=== PATIENT | male | born 1955 | race Two or more races ===

== ENCOUNTER 2018-09-20 18:46 | Emergency (ER) | payer SELFPAY ==
[~2018-09-20] VITALS: Ht 175.3 cm; Wt 72.6 kg
[2018-09-20] MEDS ORDERED: NKM (18:54)
--- NOTE | 2018-09-20 18:55 | NUR ---
ED Nurse Note: Patient walked into ED c/o left thumb injury, patient reports that he was changing tire and got crush injury on the left thumb. patient reports this happened around 1530 today
--- NOTE | 2018-09-20 19:07 | NUR ---
HAND-OFF: Report given to Adelina PARTIDA.
--- NOTE | 2018-09-20 19:08 | NUR ---
ED Nurse Note: Received report from Heidi/RN, will continue to monitor.
[2018-09-20] MEDS ORDERED: Tetanus/Diptheria/Pertussis IM ONE (19:15)
--- NOTE | 2018-09-20 19:21 | Emergency Room Report ---
History of Present Illness General Chief Complaint: Upper Extremity Injury Source: Patient Present Illness HPI 63-year-old male presents to the emergency department complaining of 8 out of 10 severity pain, laceration and nail injury to the left thumb x1 day. Patient reports he was changing a car tire earlier and the vehicle slipped off of the pippa and his left thumb. Patient reports he is right-hand dominant he states he is not up-to-date with his tetanus vaccination he denies taking blood thinning medications. Allergies: Coded Allergies: No Known Allergies (Unverified , 09/20/18) Patient History Past Medical History: see triage record Past Surgical History: none Pertinent Family History: none Reviewed Nursing Documentation: PMH: Agreed; PSxH: Agreed Nursing Documentation-PMH Past Medical History: No Stated History Review of Systems All Other Systems: negative except mentioned in HPI Physical Exam Vital Signs Date Time Temp Pulse Resp B/P (MAP) Pulse Ox O2 Delivery O2 Flow Rate FiO2 09/20/18 18:50 98.1 75 17 155/68 (97) 95 Room Air Sp02 EP Interpretation: reviewed, normal General Appearance: alert, GCS 15, non-toxic, mild distress Head: normocephalic, atraumatic Eyes: bilateral eye normal inspection, bilateral eye PERRL ENT: hearing grossly normal, normal voice Neck: full range of motion Respiratory: lungs clear, normal breath sounds, speaking full sentences Cardiovascular #1: regular rate, rhythm Musculoskeletal: back normal, gait/station normal, normal range of motion, tender - distal left thumb, laceration just proximal to the nail , nail is not intact. Neurologic: alert, oriented x3, responsive, motor strength/tone normal, sensory intact, speech normal, grossly normal Psychiatric: judgement/insight normal Skin: normal color, no rash, warm/dry, well hydrated, other - Nail avulsion of the left thumb with 1cm nailbed laceration. Procedures Laceration/Wound Repair Laceration/Wound Repair : Consent: Verbal Wound Location: upper extremity Wound's Depth, Shape: nail-avulsed Wound Length (cm): 1 Wound Explored: contaminated - grossly contaminated Irrigated w/ Saline (ccs): 200 Betadine Prep?: Yes Anesthesia: 1% Lidocaine Volume Anesthetic (ccs): 5 Wound Repaired With: sutures Suture Size/Type: 4:0 Number of Sutures: 6 Layer Closure?: Yes Deep Layer Suture Size/Type: 4:0, chromic Number Deep Layer Sutures: 2 Sterile Dressing Applied?: Yes Splint Applied?: Yes Type of Splint Applied: short arm w. thumb extension Sling Applied?: Yes Patient Tolerated: Well Complications: None Medical Decision Making RAMOS Attestation Dr. Nieves is my supervising physician whom pt. management has been discussed with. Diagnostic Impression: Primary Impression: Fracture, metacarpal Qualified Codes: S62.209A - Unspecified fracture of first metacarpal bone, unspecified hand, initial encounter for closed fracture Additional Impressions: Laceration of finger nail bed Qualified Codes: S61.319A - Laceration without foreign body of unspecified finger with damage to nail, initial encounter Traumatic avulsion of nail plate of finger Qualified Codes: S61.309A - Unspecified open wound of unspecified finger with damage to nail, initial encounter ER Course 63-year-old male presents to the emergency department complaining of 8 out of 10 severity pain, laceration and nail injury to the left thumb x1 day. Patient reports he was changing a car tire earlier and the vehicle slipped off of the pippa and his left thumb. Patient reports he is right-hand dominant he states he is not up-to-date with his tetanus vaccination he denies taking blood thinning medications. Ddx considered but are not limited to Fracture, dislocation, contusion, Sprain/ Strain/Spasm, Vital signs: are WNL, pt. is afebrile H&PE are most consistent with musculoskeletal injury will perform imaging to r/ o fractures/dislocations. ORDERS: - X-ray Left Hand 3 views - POSITIVE FOR 5th METACARPAL Fx., No Dislocation, or significant soft tissue injury, per preliminary read in ED, and signed by RAMOS Lombardo, my supervising physician has reviewed, and agrees with my interpretation. ED INTERVENTIONS: - [place] PO -Nail bed lac repair -Morphine 4mg IM short arm Splint applied to the heft hand by tar processing technician. Pt. remains neurovascularly intact. - left arm Sling applied by tar processing technician. Pt. remains neurovascularly intact. DISCHARGE: At this time pt. is stable for d/c to home. Will provide printed patient care instructions, and any necessary prescriptions. Care plan and follow up instructions have been discussed with the patient prior to discharge. Other X-Ray Diagnostic Results Other X-Ray Diagnostic Results : X-Ray ordered: Left hand # of Views/Limited Vs Complete: 3 View Indication: Pain EP Interpretation: Yes PA Xray: Interpretation reviewed, by supervising MD, and agrees with findings. Interpretation: no dislocation, no soft tissue swelling, other - fx of the 5th metacarpal Impression: Other - abn Electronically Signed by: Nely Lombardo PA-C Last Vital Signs Date Time Temp Pulse Resp B/P (MAP) Pulse Ox O2 Delivery O2 Flow Rate FiO2 09/20/18 18:50 98.1 75 17 155/68 (97) 95 Room Air Status: improved Disposition: HOME, SELF-CARE Condition: Stable Scripts Hydrocodone Bit/Acetaminophen 5-325* (NORCO 5-325*) 1 Each Tablet 1 TAB ORAL Q6H PRN for For Pain, #10 TAB 0 Refills Prov: Nely Lombardo 09/20/18 Cephalexin* (KEFLEX*) 500 Mg Capsule 500 MG ORAL EVERY 12 HOURS for 7 Days, #14 CAP 0 Refills Prov: Nely Lombardo 09/20/18 Referrals: Jah Singletary MD [facility] Patient Instructions: Metacarpal Fracture, [id number], Nail Avulsion, Nail Bed Laceration Additional Instructions: Take medications as directed. Sutures to be removed in 10 days Follow up with an ORTHOPEDIC HAND SPECIALIST in 3-5 days, even if your symptoms have resolved. --Please review list of primary care clinics, if you do not already have a primary care provider who can give you an Orthopedic Referral. Return sooner to ED if new symptoms occur, or current symptoms become worse. Do not drink alcohol, drive, or operate heavy machinery while taking [place] as this may cause drowsiness. - Please note that this Emergency Department Report was dictated using [employer] development manager technology software, occasionally this can lead to erroneous entry secondary to interpretation by the dictation equipment. Nely Lombardo Sep 20, 2018 19:21
--- NOTE | 2018-09-20 19:22 | NUR ---
ED Nurse Note: Meds given as ordered.
[2018-09-20 19:25] VITALS: BP 151/67
[2018-09-20] MEDS ORDERED: HYDROcodone/Acetamin 5/325 tab ORAL ONE (19:30)
--- NOTE | 2018-09-20 20:04 | Diagnostic Imaging Report ---
EXAM: XR Left Hand Complete, 3 Views CLINICAL HISTORY: PAIN TECHNIQUE: Frontal, lateral and oblique views of the left hand. COMPARISON: No relevant prior studies available. FINDINGS: Bones/joints: Linear lucencies are seen in the fifth metacarpal bone which are likely related to a fracture. Some callus formation is suspected in this region which may be related to an acute on chronic fracture or a more subacute fracture that has undergone some healing. No dislocation. Soft tissues: Unremarkable. No radiopaque foreign body. IMPRESSION: Linear lucencies are seen in the fifth metacarpal bone which are likely related to a fracture. Some callus formation is suspected in this region which may be related to an acute on chronic fracture or a more subacute fracture that has undergone some healing.
[2018-09-20] MEDS ORDERED: NORCO 5-325 TA1 EACH ORAL (21:25)
[2018-09-20] MEDS ORDERED: CEPHALEXIN500 MG ORAL (21:25)
[2018-09-20 21:44] VITALS: BP 151/67
--- NOTE | 2018-09-20 21:44 | NUR ---
ER DISCHARGE NOTE: Patient is cleared to be discharged per Nely Lombardo/ RAMOS. X-ray done, cast applied to left arm and spline applied as well. Pt is aox4 on room air with stable vital signs. Pt was given dc and prescription instructions and was able to verbalize understanding. Pt's band removed. Pt is able to ambulate with steady gait and took all belongings.
[2018-09-20] MEDS ORDERED: Morphine Sulfate 2mg/ml Inj(IV/IM USE ONLY) IM ONE (21:45)
== END 2018-09-20 21:44 | disposition home or self-care (01) ==
LOC: EMR 19:20
DX: S61.112A Laceration without foreign body of left thumb with damage to nail, initial encounter (principal); S62.202A Unspecified fracture of first metacarpal bone, left hand, initial encounter for closed fracture; W22.8XXA Striking against or struck by other objects, initial encounter; Y93.89 Activity, other specified; Y92.9 Unspecified place or not applicable
CPT/HCPCS: 12001; 29105; 73130; 90471; 90715; 96372; 99284; J2270

== ENCOUNTER 2018-09-30 09:17 | Emergency (ER) | payer SELFPAY ==
[~2018-09-30] VITALS: Ht 167.6 cm; Wt 63.5 kg
[~2018-09-30 09:17] MED LIST: CEPHALEXIN500 MG ORAL; NKM; NORCO 5-325 TA1 EACH ORAL
[2018-09-30] MEDS ORDERED: IBUPROFEN600 MG ORAL (09:56)
[2018-09-30] MEDS ORDERED: Bacitracin Oint UD TOPIC ONE (10:00)
[2018-09-30 10:04] VITALS: BP 153/67
[2018-09-30 10:08] VITALS: BP 153/67
--- NOTE | 2018-09-30 10:37 | Emergency Room Report ---
History of Present Illness General Chief Complaint: Upper Extremity Injury Source: Patient Present Illness HPI 63-year-old male presents ED for evaluation. Patient is here for wound check. Had a fracture of his left hand on 09/20. Had sutures placed in his left thumb and placed in a splint. Was given referral to hand but patient states he never followed up. States he does have some pain but his pain medication ran out. Dull, 5 out of 10, nonradiating. No other aggravating relieving factors. Denies any other associated symptoms Allergies: Coded Allergies: No Known Allergies (Unverified , 09/20/18) Patient History Past Medical History: none Past Surgical History: none Pertinent Family History: none Social History: Denies: smoking, alcohol use, drug use Immunizations: UTD Reviewed Nursing Documentation: PMH: Agreed; PSxH: Agreed Nursing Documentation-PMH Past Medical History: No Stated History Review of Systems All Other Systems: negative except mentioned in HPI Physical Exam Vital Signs Date Time Temp Pulse Resp B/P (MAP) Pulse Ox O2 Delivery O2 Flow Rate FiO2 09/30/18 09:19 98.2 85 16 153/67 (95) 96 Room Air Sp02 EP Interpretation: reviewed, normal General Appearance: no apparent distress, alert, GCS 15, non-toxic Head: normocephalic Eyes: bilateral eye normal inspection, bilateral eye PERRL ENT: normal ENT inspection Neck: normal inspection Respiratory: normal inspection Cardiovascular #1: normal inspection Gastrointestinal: normal inspection Rectal: deferred Genitourinary: no CVA tenderness Musculoskeletal: tender - L hand. sutures in place L thumb nailbed Neurologic: alert, oriented x3, responsive, motor strength/tone normal, sensory intact, speech normal Psychiatric: judgement/insight normal, memory normal, mood/affect normal, no suicidal/homicidal ideation Skin: palpation normal, Decubitus/Ulcer, normal color Lymphatic: normal inspection Procedures Splinting Splinting : Consent: Verbal Pre-Made Type: velcro Splint: thumb spica Pre-Proc Neuro Vasc Exam: normal Post-Proc Neuro Vasc Exam: normal Patient Tolerated: Well Complications: None Medical Decision Making Diagnostic Impression: Primary Impression: Nailbed laceration, finger Qualified Codes: S61.319D - Laceration without foreign body of unspecified finger with damage to nail, subsequent encounter Additional Impressions: Metacarpal bone fracture Qualified Codes: S62.307D - Unspecified fracture of fifth metacarpal bone, left hand, subsequent encounter for fracture with routine healing Visit for wound check ER Course Hospital Course 63-year-old M presents to ED for wound check. s/p metacarpal fx and L thumb nailbed laceration Clinical course Patient placed on stretcher. Wound appears clean dry and intact. sutures in place. Erythema or induration. No fluctuance or discharge. Removed. Placed in thumb spica splint. Discussed findings with patient. He will need referral to Ortho/hand. Referrals were provided to him initially but he lost the paperwork. I will provide him with referrals again. Will prescribe ibuprofen. Diagnosis - visit for wound check, metacarpal fx, nailbed laceration finger Stable and discharged to home. Followup with hand/ortho Return to ED if any signs of infection develop Last Vital Signs Date Time Temp Pulse Resp B/P (MAP) Pulse Ox O2 Delivery O2 Flow Rate FiO2 09/30/18 10:08 98.2 69 16 153/67 96 Room Air Status: improved Disposition: HOME, SELF-CARE Condition: Stable Scripts Ibuprofen* (MOTRIN*) 600 Mg Tablet 600 MG ORAL Q8H PRN for For Pain, #30 TAB 0 Refills Prov: Santo Parish MD 09/30/18 Referrals: NOT CHOSEN IPA/,REFERRING (PCP) Jah Singletary MD [facility] Open 24 hour /7 days a week by Appointment Only [address] [facility] [address] Patient Instructions: Metacarpal Fracture, [id number] Santo Parish MD Sep 30, 2018 10:37
== END 2018-09-30 10:10 | disposition home or self-care (01) ==
LOC: EMR 09:50
DX: S61.319D Laceration without foreign body of unspecified finger with damage to nail, subsequent encounter (principal); S62.307D Unspecified fracture of fifth metacarpal bone, left hand, subsequent encounter for fracture with routine healing; X58.XXXD Exposure to other specified factors, subsequent encounter
CPT/HCPCS: 29130; 99282